=== PATIENT | female | born 1950 | race Caucasian/White ===

== ENCOUNTER → 2019-04-16 | Outpatient (CLI) | payer SELFPAY ==
[~2019-04-16] MED LIST: ALBU17AE3; ATOR40TA; HCTZ12.5T PO; MNTL10T; NAPR-243 PO; PRILOSEC OTC PO; ROSU20TA14 PO; TRM50T PO; [UNRECOGNIZED DRUG - CODE]
[2019-04-16 09:38] LABS: RED CELL DISTRIBUTION WIDTH 14.8 % (10.0-14.5); WHITE BLOOD COUNT 5.3 10^3/uL (4.3-11.0)
[2019-04-16 09:58] LABS: ALANINE AMINOTRANSFERASE 18 U/L (0-55); ALBUMIN 4.8 GM/DL (3.2-4.5); ALKALINE PHOSPHATASE 73 U/L (40-136); BILIRUBIN,TOTAL 0.8 MG/DL (0.1-1.0); BUN/CREATININE RATIO 21; CALCIUM 9.7 MG/DL (8.5-10.1); CARBON DIOXIDE 27 MMOL/L (21-32); CHLORIDE 104 MMOL/L (98-107); CHOLESTEROL 191 MG/DL (< 200); CREATININE SERUM 1.06 MG/DL (0.60-1.30); GFR ESTIMATED 51; GLUCOSE 113 MG/DL (70-105); HDL CHOLESTEROL 53 MG/DL (40-60); POTASSIUM 3.8 MMOL/L (3.6-5.0); SODIUM 141 MMOL/L (135-145); TOTAL PROTEIN 7.6 GM/DL (6.4-8.2); TRIGLYCERIDES 231 MG/DL (<150); VLDL CHOLESTEROL 46 MG/DL (5-40)
== END ==
LOC: LAB 09:19
PROVIDERS: ATTEND Family Medicine
DX: I10 Essential (primary) hypertension (principal); E78.5 Hyperlipidemia, unspecified; R42 Dizziness and giddiness
CPT/HCPCS: 36415; 80053; 80061; 84443; 85027

== ENCOUNTER → 2021-05-12 | Outpatient (CLI) | payer SELFPAY ==
[2021-05-12 09:10] LABS: HEMATOCRIT 37 % (35-52); HEMOGLOBIN 12.3 g/dL (11.5-16.0); MEAN CORPUSCULAR HEMOGLOBIN 28 pg (25-34); MEAN CORPUSCULAR HGB CONC 34 g/dL (32-36); MEAN CORPUSCULAR VOLUME 84 fL (80-99); MEAN PLATELET VOLUME 10.5 fL (9.0-12.2); PLATELET COUNT 220 10^3/uL (130-400); WHITE BLOOD COUNT 6.6 10^3/uL (4.3-11.0)
[2021-05-12 09:27] LABS: ALBUMIN 4.4 GM/DL (3.2-4.5); BILIRUBIN,TOTAL 0.9 MG/DL (0.1-1.0); CALCIUM 9.9 MG/DL (8.5-10.1); CREATININE SERUM 0.96 MG/DL (0.60-1.30); POTASSIUM 3.7 MMOL/L (3.6-5.0); TOTAL PROTEIN 7.2 GM/DL (6.4-8.2)
== END ==
LOC: LAB 08:46
PROVIDERS: ATTEND Family Medicine
DX: I10 Essential (primary) hypertension (principal); E78.5 Hyperlipidemia, unspecified
CPT/HCPCS: 36415; 80053; 80061; 85027

== ENCOUNTER → 2022-11-24 | Outpatient (CLI) | payer SELFPAY ==
[2022-11-24 07:56] LABS: HEMATOCRIT 39 % (35-52); MEAN CORPUSCULAR HEMOGLOBIN 29 pg (25-34); MEAN CORPUSCULAR HGB CONC 33 g/dL (32-36); MEAN CORPUSCULAR VOLUME 86 fL (80-99); MEAN PLATELET VOLUME 10.2 fL (9.0-12.2); PLATELET COUNT 204 10^3/uL (130-400); WHITE BLOOD COUNT 6.8 10^3/uL (4.3-11.0)
[2022-11-24 08:06] LABS: ALBUMIN 4.6 GM/DL (3.2-4.5); CHLORIDE 107 MMOL/L (98-107); POTASSIUM 4.1 MMOL/L (3.6-5.0); SODIUM 141 MMOL/L (135-145)
[2022-11-24 08:07] LABS: CALCIUM 9.9 MG/DL (8.5-10.1)
[2022-11-24 08:08] LABS: TOTAL PROTEIN 7.4 GM/DL (6.4-8.2); TRIGLYCERIDES 346 MG/DL (<150); VLDL CHOLESTEROL 69 MG/DL (5-40)
[2022-11-24 08:09] LABS: GLUCOSE 116 MG/DL (70-105)
[2022-11-24 08:10] LABS: BILIRUBIN,TOTAL 0.9 MG/DL (0.1-1.0); CARBON DIOXIDE 22 MMOL/L (21-32)
[2022-11-24 08:12] LABS: ALKALINE PHOSPHATASE 65 U/L (40-136); CREATININE SERUM 1.17 MG/DL (0.60-1.30); GFR ESTIMATED 49
[2022-11-24 08:13] LABS: BUN/CREATININE RATIO 19; CHOLESTEROL 185 MG/DL (< 200)
[2022-11-24 08:14] LABS: HDL CHOLESTEROL 53 MG/DL (40-60)
[2022-11-24 08:15] LABS: ALANINE AMINOTRANSFERASE 20 U/L (0-55)
== END ==
LOC: LAB 07:26
PROVIDERS: ATTEND Family Medicine
DX: I10 Essential (primary) hypertension (principal); E78.5 Hyperlipidemia, unspecified
CPT/HCPCS: 36415; 80053; 80061; 84443; 85027

== ENCOUNTER → 2023-02-10 | Outpatient (CLI) | payer SELFPAY | LOC: LAB 11:22 | PROVIDERS: ATTEND Family Medicine | DX: D68.51 Activated protein C resistance (principal) | CPT/HCPCS: 36415; 81241 ==

== ENCOUNTER → 2023-02-14 | Outpatient (CLI) | payer SELFPAY ==
--- NOTE | 2023-02-14 15:12 | Diagnostic Imaging Report ---
PROCEDURE: US Venous Lower Ext Rogerio. TECHNIQUE: Multiple Real-time grayscale images were obtained over the lower extremities in various projections bilaterally. Additional duplex Doppler and color Doppler images were also obtained. INDICATION: Blood clots. FINDINGS: There is no evidence of right or left lower extremity DVT. Both lower extremity deep venous systems demonstrate normal compressibility with normal response to augmentation and Valsalva. No fluid collection or mass is detected. IMPRESSION: No evidence of right or left lower extremity DVT. Dictated by: Dictated on workstation # [id number]
== END ==
LOC: RAD 12:45
PROVIDERS: ATTEND Family Medicine
DX: I82.409 Acute embolism and thrombosis of unspecified deep veins of unspecified lower extremity (principal)
CPT/HCPCS: 93970